=== PATIENT | male | born 1960 | race Caucasian/White ===

== ENCOUNTER 2018-09-06 01:38 | Emergency (ER) | payer OTHER ==
[2018-09-06 02:14] LABS: ADD MAN DIFF? NO
[2018-09-06 02:18] LABS: BASOPHILS % 0.2 % (0.0-2.0); EOSINOPHILS # 0.2 10^3/ul (0.0-0.5); EOSINOPHILS % 3.7 % (0.0-7.0); HEMATOCRIT 41.7 % (42.0-52.0); HEMOGLOBIN 13.1 g/dl (14.0-18.0); LYMPHOCYTES # 2.7 10^3/ul (0.8-2.9); LYMPHOCYTES % 44.3 % (15.0-51.0); MEAN CORPUSCULAR HEMOGLOBIN 26.5 pg (29.0-33.0); MEAN CORPUSCULAR HGB CONC 31.4 g/dl (32.0-37.0); MEAN CORPUSCULAR VOLUME 84.4 fl (82.0-101.0); MEAN PLATELET VOLUME 9.4 fl (7.4-10.4); MONOCYTE # 0.6 10^3/ul (0.3-0.9); MONOCYTES % 9.3 % (0.0-11.0); NEUTROPHIL # 2.5 10^3/ul (1.6-7.5); NEUTROPHILS % 42.3 % (39.0-77.0); PLATELET COUNT 182 10^3/UL (140-415); RED BLOOD COUNT 4.94 10^6/ul (4.70-6.10); RED CELL DISTRIBUTION WIDTH 13.5 % (11.5-14.5)
[2018-09-06 02:35] LABS: ALBUMIN/GLOBULIN RATIO 1.11; ALKALINE PHOSPHATASE 87 IU/L (42-121); ANION GAP 8 (5-13); ASPARTATE AMINO TRANSFERASE 20 IU/L (15-46); BLOOD UREA NITROGEN 14 mg/dl (7-20); CALCIUM 9.8 mg/dl (8.4-10.2); CARBON DIOXIDE 27 mmol/L (21-31); CHLORIDE 113 mmol/L (97-110); CREATININE 0.89 mg/dl (0.61-1.24); Estimated GFR > 60 mL/min (>60); GLUCOSE 97 mg/dl (70-220); POTASSIUM 3.6 mmol/L (3.5-5.1); SODIUM 148 mmol/L (135-144); TOTAL PROTEIN 7.6 g/dl (6.1-8.1)
[2018-09-06 02:42] LABS: ACETAMINOPHEN < 10.0 ug/ml (10.0-30.0); ALANINE AMINOTRANSFERASE < 6 IU/L (13-69); ETHANOL < 10.0 mg/dl (0-0)
[2018-09-06 02:57] LABS: SALICYLATE < 1.0 mg/dl (5.0-30.0)
[2018-09-06] MEDS: LORAZEPAM 1 MG TAB PO (05:37)
[2018-09-06] MEDS ORDERED: BISACODYL (EC) 5 MG TAB PO (06:00)
[2018-09-06] MEDS ORDERED: DOCUSATE SODIUM 100 MG CAP PO (06:00)
[2018-09-06] MEDS ORDERED: NACL 0.9% 3 ML SYG IV (06:00)
[2018-09-06] MEDS ORDERED: ACETAMINOPHEN 325 MG TAB PO (06:00)
[2018-09-06] MEDS ORDERED: LORAZEPAM 0.5 MG TAB PO (06:00)
[2018-09-06] MEDS ORDERED: HALOPERIDOL 5 MG INJ IM (06:00)
[2018-09-06 06:47] LABS: ADD UMIC NO; UR ASCORBIC ACID NEGATIVE (NEGATIVE); UR BILIRUBIN (Dip) NEGATIVE (NEGATIVE); UR BLOOD (Dip) NEGATIVE (NEGATIVE); UR CLARITY CLEAR (CLEAR); UR COLOR STRAW (YELLOW); UR GLUCOSE (Dip) NEGATIVE (NEGATIVE); UR KETONES (Dip) NEGATIVE (NEGATIVE); UR LEUKOCYTE ESTERASE (Dip) NEGATIVE Leu/ul (NEGATIVE); UR NITRITE (Dip) NEGATIVE (NEGATIVE); UR SPECIFIC GRAVITY (Dip) 1.006 (1.003-1.030); UR TOTAL PROTEIN (Dip) NEGATIVE (NEGATIVE); UR UROBILINOGEN (Dip) NEGATIVE (NEGATIVE)
[2018-09-06 07:08] LABS: AMPHETAMINE/METHAMPHETAMINE Negative (NEGATIVE); BARBITURATES Negative (NEGATIVE); BENZODIAZEPINES Negative (NEGATIVE); CANNABINOIDS Negative (NEGATIVE); COCAINE Negative (NEGATIVE); OPIATES Positive (NEGATIVE)
[2018-09-06] MEDS: SODIUM CHLORIDE 0.45% 500 ML BAG IV* (08:06)
[2018-09-06] MEDS: HALOPERIDOL 5 MG INJ IM (11:37)
[2018-09-06] MEDS: LORAZEPAM 2 MG INJ IM (11:38)
[2018-09-06] MEDS: RISPERIDONE 1 MG TAB PO (21:00)
[2018-09-06] MEDS: ZOLPIDEM 5 MG TAB PO (21:00)
[2018-09-07] MEDS: RISPERIDONE 0.25 MG TAB PO (08:12)
[2018-09-07] MEDS: ZOLPIDEM 5 MG TAB PO (22:57)
[2018-09-07] MEDS: RISPERIDONE 1 MG TAB PO (22:58)
[2018-09-08] MEDS: RISPERIDONE 0.25 MG TAB PO (09:26)
[2018-09-08] MEDS: RISPERIDONE 1 MG TAB PO (20:24)
[2018-09-08] MEDS: ZOLPIDEM 5 MG TAB PO (20:24)
== END 2018-09-08 20:19 | disposition home or self-care (01) ==
LOC: E/R 09-08 20:19
DX: R45.6 Violent behavior (principal); D64.9 Anemia, unspecified; R41.82 Altered mental status, unspecified
CPT/HCPCS: 36415; 70450; 80053; 80307; 81003; 82962; 85025; 96372; 99285-25